=== PATIENT | female | born 1970 ===

== ENCOUNTER 2017-01-30 08:55 | Day surgery (SDC) | payer MEDICAID ==
[2017-01-28 13:26] VITALS: BMI 25.7
[2017-01-30 09:40] LABS: BASO # 0.05 K/mm3 (0.0-2.0); BASO % 0.8 % (0.0-3.0); EOS # 0.1 (0.0-0.7); EOS % 1.5 % (1.5-5.0); GRAN # 2.96 (1.4-6.5); GRAN % 48.2 % (50.0-68.0); HEMATOCRIT 36.5 % (36.0-48.0); LYMPH # 2.6 (1.2-3.4); LYMPH % 42.3 % (22.0-35.0); MEAN CELL VOLUME 87.7 fl (80.0-105.0); MEAN CORPUSCULAR HEMOGLOBIN 29.6 pg (25.0-35.0); MEAN CORPUSCULAR HGB CONC 33.7 g/dl (31.0-37.0); MEAN PLATELET VOLUME 10.1 fl (7.0-11.0); MONO # 0.4 (0.1-0.6); MONO % 7.2 % (1.0-6.0); RED CELL DISTRIBUTION WIDTH 12.8 % (11.5-14.5); WHITE BLOOD COUNT 6.1 10^3/ul (4.5-11.0)
[2017-01-30 09:48] LABS: INR 1.04 (0.93-1.08); PARTIAL THROMBOPLASTIN TIME 30.7 Seconds (25.1-36.5)
[2017-01-30 10:18] LABS: POTASSIUM 4.1 mmol/L (3.6-5.0); SODIUM 140 mmol/L (132-148)
[2017-01-30] MEDS ORDERED: Midazolam 2 MG/2 ML VIAL ONE (11:05)
[2017-01-30 11:19] LABS: BLOOD UREA NITROGEN 11 mg/dL (7-21); CALCIUM 9.5 mg/dL (8.4-10.5); CARBON DIOXIDE 27 mmol/L (21-33); CHLORIDE 104 mmol/L (98-107); GFR AFRICAN-AMERICAN > 60; GLUCOSE,RANDOM 104 mg/dL (70-110)
[2017-01-30] MEDS ORDERED: Oxycodone/Acetaminophen 5/325 mg Tab PO PRN (11:58)
[2017-01-30] MEDS ORDERED: Sodium Chloride 0.45% 1,000 ML IV SCH (12:00)
[2017-01-30 12:41] VITALS: RESP 18; TEMP 97.9; O2SAT 100
--- NOTE | 2017-01-30 12:55 | US ---
PROCEDURE: Ultrasound-guided left thyroid fine needle aspiration biopsy. CLINICAL HISTORY: Multiple thyroid nodules. Are gene 1.8 cm left isthmus nodule. Stable large left thyroid nodule. Evaluate for malignancy PHYSICIAN(S): Bebeto Richard M.D. TECHNIQUE: The relative risks and indications for the procedure were explained to the patient and consent obtained. The patient was placed supine on the stretcher with the neck extended and preliminary sonography of the thyroid performed. This reveal 1.8 cm nodule in the left isthmus adjacent to a larger 3.5 cm nodule. There are smaller nodules on the right. The neck was prepped and draped in the usual sterile fashion. Conscious sedation and monitoring were provided throughout the procedure by a nurse. 1% Xylocaine was used to anesthetize the skin and soft tissues at the access site. Three passes with a 22-gauge needle were performed under ultrasound guidance for fine needle aspiration of both the 1.8 cm isthmus nodule and a 3.5 cm left thyroid nodule. The patient tolerated the procedure well. IMPRESSION: 1. Ultrasound guided fine needle aspiration of a 1.8 cm left isthmus nodule and 3.5 cm left thyroid nodule as described above.
[2017-01-30 13:52] VITALS: BP 116/72; PULSE 58
== END 2017-01-30 13:45 | disposition home or self-care (01) ==
LOC: SDS 08:55
PROVIDERS: ATTEND Radiology Vascular & Interventional Radiology
DX: E04.1 Nontoxic single thyroid nodule (principal); I10 Essential (primary) hypertension
CPT/HCPCS: 10022; 36415; 80048; 84703; 85025; 85610; 85730; 88173; 88305; J2250; J2405; J3010; J7030